=== PATIENT | female | born 1980 | race African-American/Black ===

== ENCOUNTER 2021-04-07 13:21 | Outpatient (REF) | payer OTHER, SELFPAY ==
[2021-04-07 14:23] LABS: COVID-19 Test Negative (Negative); IDNOW Serial# 55D5AD1C
== END 2021-04-07 13:22 | disposition home or self-care (01) ==
LOC: HO.LAB 13:21
PROVIDERS: Visit Provider Internal Medicine
DX: Z20.822 Contact with and (suspected) exposure to COVID-19 (principal)
CPT/HCPCS: 36415; 87635; C9803